=== PATIENT | male | born 1995 | race Caucasian/White ===

== ENCOUNTER 2016-07-13 02:50 | Emergency (ER) | payer SELFPAY ==
--- NOTE | 2016-07-13 02:56 | EDPHY ---
H & P Time Seen by Provider: 07/13/16 02:52 HPI/ROS: HPI The patient presents with injury to his left forearm which occurred about 30 minutes prior to arrival. He was in his room and broke the glass window. A piece of glass cut his arm and he began bleeding profusely. He has mild pain at the site of the laceration and denies any numbness or tingling of his hand. He denies any coolness of his hand.. REVIEW OF SYSTEMS Constitutional: No fever, no chills. Eyes: No discharge. ENT: No sore throat. Cardiovascular: No chest pain, no palpitations. Respiratory: No cough, no shortness of breath. Gastrointestinal: No abdominal pain, no vomiting. Genitourinary: No hematuria. Musculoskeletal: No back pain. Skin: No rashes. Neurological: No headache. PMHx: Last tetanus shot 2 years ago Soc Hx: College student PHYSICAL General Appearance: Alert, no distress Eyes: Pupils equal and round no pallor or injection ENT, Mouth: Mucous membranes moist Respiratory: There are no retractions, lungs are clear to auscultation Cardiovascular: Regular rate and rhythm Gastrointestinal: Abdomen is soft and non-tender, no masses, bowel sounds normal Neurological: A&O, moves all extremities Skin: Warm and dry, no rashes Musculoskeletal: Neck is supple non tender Extremities: Left anterior forearm with 5 cm laceration which is gaping with no active bleeding currently, 2+ radial pulses, sensation intact to light touch throughout his hand, full range of motion of his hand Psychiatric: Patient is oriented X 3, there is no agitation Source: Patient Exam Limitations: No limitations Constitutional: Initial Vital Signs Temperature (C) 36.0 C 07/13/16 02:53 Heart Rate 81 07/13/16 02:53 Respiratory Rate 20 07/13/16 02:53 Blood Pressure 107/90 H 07/13/16 02:53 O2 Sat (%) 95 07/13/16 02:53 O2 Delivery Mode Room Air Allergies/Adverse Reactions: No Known Allergies Allergy (Unverified 07/13/16 02:52) Home Medications: Medication Instructions Recorded NK [No Known Home Meds] 07/13/16 Medical Decision Making Procedures: LACERATION REPAIR Procedure: Laceration repair. Verbal consent was obtained from the patient. The linear 5 cm laceration on the anterior forearm was anesthetized using bupivacaine with epinephrine. The wound was scrubbed, draped and explored to its base with a gloved finger. There was a small branch of an artery that was ligated with no active bleeding currently No tendon injury was identified. . The wound was repaired with 3 horizontal mattress sutures using 4.0 nylon. The wound repair was simple. The procedure was performed by myself. Differential Diagnosis: This is a 21-year-old healthy male who presents with forearm laceration which occurred about 30 minutes prior to arrival when he cut his arm on glass. This was accidental. He describes profuse bleeding from what sounds like a pumping artery which has now resolved. He is neurovascularly intact with normal radial pulse and brisk cap refill, he does not have any sensory deficits. Departure - Departure Disposition: Home, Routine, Self-Care Clinical Impression: Laceration of forearm, left Condition: Good Instructions: Laceration (ED), Care For Your Stitches (ED) Additional Instructions: Please return to the emergency room in 1 week for suture removal.
[2016-07-13 02:57] VITALS: TEMP 96.8
[2016-07-13 03:44] VITALS: BP 102/74; RESP 16
[2016-07-13 03:50] VITALS: PULSE 72; O2SAT 93
--- NOTE | 2016-07-13 09:15 | DX ---
Left forearm, 2 views. History: Laceration with glass. Findings: Radius and ulna appear normal. No fracture. No radiopaque foreign object. Soft tissue lacer ation distal left forearm. Impression: Negative exam.
== END 2016-07-13 03:48 | disposition home or self-care (01) ==
PROC: 0HQEXZZ Repair Left Lower Arm Skin, External Approach (ICD-10-PCS; principal; 2016-07-13)
DX: S51.812A Laceration without foreign body of left forearm, initial encounter (principal); W45.8XXA Other foreign body or object entering through skin, initial encounter